=== PATIENT | female | born 1965 | race Caucasian/White ===

== ENCOUNTER 2018-10-12 08:33 | Emergency (ER) | payer OTHER ==
[~2018-10-12 08:33] MED LIST: ACET1TAB33 PO
[2018-10-12 08:56] VITALS: BP 155/39
[2018-10-12] MEDS ORDERED: D-ME118S2 PO (09:04)
[2018-10-12] MEDS ORDERED: DOXY100T PO (09:04)
--- NOTE | 2018-10-12 09:04 | PHYS DOC ---
Past History Past Medical History: Asthma Past Surgical History: Smoking: Cigarettes, Less than 1pk/day Alcohol Use: None Drug Use: None Adult General Chief Complaint Chief Complaint: FLU SYMPTOM HPI HPI Patient is a 53-year-old female presents with head/nasal congestion and cough that has been present for the past 3 days. Subjective fever. She has not taken her temperature. No improvement with generic TheraFlu equivalent. No nausea or vomiting. No diarrhea. Symptoms are moderate in intensity. Nothing seems to make them better or worse. There is sick family at home with similar symptoms.[] Review of Systems Review of Systems Constitutional: Denies fever or chills [] Eyes: Denies change in visual acuity, redness, or eye pain [] HENT: See history of present illness[] Respiratory: Denies shortness of breath [] Cardiovascular: No chest pain or palpitations[] GI: Denies abdominal pain, nausea, vomiting, bloody stools or diarrhea [] : Denies dysuria or hematuria [] Musculoskeletal: Denies back pain or joint pain [] Integument: Denies rash or skin lesions [] Neurologic: Denies headache, focal weakness or sensory changes [] Endocrine: Denies polyuria or polydipsia [] All other systems were reviewed and found to be within normal limits, except as documented in this note. Allergies Allergies Allergies Coded Allergies Type Severity Reaction Last Updated Verified No Known Drug Allergies 10/08/14 No Physical Exam Physical Exam Constitutional: Well developed, well nourished, no acute distress, non-toxic appearance. [] HENT: Normocephalic, atraumatic, bilateral external ears normal, oropharynx moist, no oral exudates, nose with clear rhinorrhea, posterior pharyngeal streaking is present. No sinus tenderness to percussion [] Eyes: PERRLA, EOMI, conjunctiva normal, no discharge. [] Neck: Normal range of motion, no tenderness, supple, no stridor. [] Cardiovascular:Heart rate regular rhythm, no murmur [] Lungs & Thorax: Bilateral breath sounds clear to auscultation [] Abdomen: Bowel sounds normal, soft, no tenderness, no masses, no pulsatile masses. [] Skin: Warm, dry, no erythema, no rash. [] Back: No tenderness, no CVA tenderness. [] Extremities: No tenderness, no cyanosis, no clubbing, ROM intact, no edema. [] Neurologic: Alert and oriented X 3, normal motor function, normal sensory function, no focal deficits noted. [] Psychologic: Affect normal, judgement normal, mood normal. [] EKG EKG [] Radiology/Procedures Radiology/Procedures [] Course & Med Decision Making Course & Med Decision Making Pertinent Labs and Imaging studies reviewed. (See chart for details) Medical decision making: Patient appears to have an upper respiratory infection. There is no evidence of systemic toxicity, pneumonia, oral intake intolerance, nor other significant illness at this time.[] Dragon Disclaimer Dragon Disclaimer This electronic medical record was generated, in whole or in part, using a voice recognition dictation system. Departure Departure: Impression: Primary Impression: Upper respiratory infection Disposition: HOME, SELF-CARE Condition: IMPROVED Referrals: JULIANA MARMOLEJO APRN (PCP) Follow-up in 2 days Patient Instructions: Smoking Cessation, Upper Respiratory Infection, Adult Additional Instructions: Drink plenty of fluids. Take the medication as prescribed. Follow-up with your regular doctor in 2 days. Return to the ER if worsening difficulty breathing, fever of more than 101, or any other concerns. Scripts D-Methorphan Hb/Prometh Hcl (PROMETHAZINE-DM SYRUP) 118 Ml Syrup 5 ML PO PRN Q4HRS for CONGESTION, #120 ML Prov: RIO ABBASI DO 10/12/18 Doxycycline Hyclate (DOXYCYCLINE HYCLATE) 100 Mg Tablet 1 TAB PO BID for cough, #20 TAB Prov: RIO ABBASI DO 10/12/18 Problem Qualifiers Primary Impression: Upper respiratory infection URI type: unspecified URI Qualified Codes: J06.9 - Acute upper respiratory infection, unspecified RIO ABBASI DO October 12, 2018 09:04
== END 2018-10-12 09:17 | disposition home or self-care (01) ==
LOC: ER 08:33
DX: J06.9 Acute upper respiratory infection, unspecified (principal); J45.909 Unspecified asthma, uncomplicated; F17.210 Nicotine dependence, cigarettes, uncomplicated
CPT/HCPCS: 99283

== ENCOUNTER → 2018-11-07 | Outpatient (CLI) | payer OTHER ==
[2018-10-12 08:56] VITALS: BP 155/39
[~2018-11-07] MED LIST changes: +D-ME118S2 PO; +DOXY100T PO; +IOHEXOL 350 MG/ML 100 ML VIAL. IV ONE
--- NOTE | 2018-11-07 18:17 | RAD ---
CT arteriogram of the chest. HISTORY: Short of breath, elevated d-dimer CT arteriogram of the chest was done using Omnipaque contrast. Thyroid is homogeneous. Mediastinal lymph nodes are within normal limits in size. There is no pleural effusion. Upper aspect of the liver and spleen are unremarkable. There is a 1.4 cm groundglass nodule in the left lower lobe. There are other smaller groundglass nodules in the right lower lobe or mild infiltrative process. There is linear scarring or atelectasis in the lingula and right middle lobe. Groundglass density in the anterior right upper lobe. Follow-up study in 3 months would would be of benefit. There is a tiny nodule in the left upper lobe. This study is negative for a pulmonary embolus. Sagittal and coronal images were reconstructed. Coronal MIP images were reconstructed. IMPRESSION: 1. Bilateral groundglass nodules or infiltrates. Follow-up in 3 months would be recommended. 2. Tiny left upper lobe nodule. 3. Negative for pulmonary embolus. Electronically signed by: Chepe Barker MD (11/07/2018 6:14 PM) [facility]
== END | disposition home or self-care (01) ==
LOC: CT 17:03
PROVIDERS: ATTEND Physician Assistant
DX: R91.1 Solitary pulmonary nodule (principal); J45.909 Unspecified asthma, uncomplicated; F17.200 Nicotine dependence, unspecified, uncomplicated
CPT/HCPCS: 71275; Q9967